=== PATIENT | female | born 1990 | race Caucasian/White ===

== ENCOUNTER → 2023-11-14 15:19 | Outpatient (REF) | payer OTHER, SELFPAY | LOC: PNTC 15:19 | PROVIDERS: ATTENDING PHYSICIAN Obstetrics & Gynecology | DX: O99.210 Obesity complicating pregnancy, unspecified trimester (principal); O34.219 Maternal care for unspecified type scar from previous cesarean delivery | CPT/HCPCS: 76805; 93976 ==

== ENCOUNTER → 2023-12-12 15:05 | Outpatient (REF) | payer OTHER, SELFPAY | LOC: PNTC 15:05 | PROVIDERS: ATTENDING PHYSICIAN Obstetrics & Gynecology | DX: O99.210 Obesity complicating pregnancy, unspecified trimester (principal) | CPT/HCPCS: 76811 ==

== ENCOUNTER → 2024-03-19 15:29 | Outpatient (REF) | payer OTHER, SELFPAY | LOC: PNTC 15:29 | PROVIDERS: ATTENDING PHYSICIAN Obstetrics & Gynecology | DX: O99.210 Obesity complicating pregnancy, unspecified trimester (principal) | CPT/HCPCS: 59025; 76815 ==

== ENCOUNTER 2024-05-02 08:04 | Inpatient (IN) | payer OTHER, SELFPAY ==
[2024-05-02 08:21] VITALS: BP 125/82; BMI 42.4
[2024-05-02] MEDS: LR 1000 IV ×2 (08:45→09:09)
[2024-05-02 09:05] LABS: Hematocrit 32.4 % (37.0-47.0); Hemoglobin 11.2 g/dL (12.0-16.0); Mean Corp Hgb Conc. 34.6 g/dL (33.0-37.0); Mean Corpuscular Hgb 28.8 pg (27.0-31.0); Mean Corpuscular Volume 83.3 fL (81.0-99.0); Mean Platelet Volume 9.7 fL (7.4-10.4); Platelet Count 238 10^3/uL (130-400); Red Blood Cell Count 3.89 10^6/uL (4.20-5.40); Red Cell Dist. Width 13.4 % (11.5-14.5); White Blood Cell Count 9.5 10^3/uL (4.8-10.8)
[2024-05-02] MEDS: BICITRA 30 ML PO (10:29)
[2024-05-02] MEDS: TYLENOL 1000 MG PO (10:29)
[2024-05-02] MEDS: TORADOL 15 MG IV ×2 (15:13→20:56)
[2024-05-02] MEDS: MYLICON 80 MG PO (20:20)
[2024-05-03] MEDS: TORADOL 15 MG IV ×2 (02:50→09:29)
[2024-05-03 04:23] LABS: Hematocrit 29.2 % (37.0-47.0); Hemoglobin 10.2 g/dL (12.0-16.0); Mean Corp Hgb Conc. 34.9 g/dL (33.0-37.0); Mean Corpuscular Hgb 29.8 pg (27.0-31.0); Mean Corpuscular Volume 85.4 fL (81.0-99.0); Mean Platelet Volume 9.7 fL (7.4-10.4); Platelet Count 203 10^3/uL (130-400); Red Blood Cell Count 3.42 10^6/uL (4.20-5.40); Red Cell Dist. Width 13.2 % (11.5-14.5); White Blood Cell Count 11.2 10^3/uL (4.8-10.8)
--- NOTE | 2024-05-03 08:05 | W.PN.ANS.POP ---
Anesthesia Post Operative
- Anesthesia Post Op Note
Vital Signs Stable-See Nursing Note: Yes
Airway Patent: Yes
Adequate Pain Control: Yes
Change in Mental Status: No
Current Postoperative Nausea & Vomiting: No
Anesthesia Complications: No
General Anesthetic Recall: No
Unplanned Admission: No
Post Op Hydration Adequate: Yes
[2024-05-03] MEDS: PRENATAL PLUS 1 TABLET PO (09:38)
[2024-05-03] MEDS: FEOSOL 325 MG PO (09:38)
[2024-05-03 12:42] LABS: Syphilis/T. pallidum Ab Reflex Negative (Negative)
[2024-05-03] MEDS: TYLENOL 650 MG PO ×2 (15:52→22:16)
[2024-05-03] MEDS: MOTRIN 600 MG PO ×2 (15:52→22:16)
[2024-05-04] MEDS: TYLENOL 650 MG PO ×3 (05:23→21:41)
[2024-05-04] MEDS: MOTRIN 600 MG PO ×3 (05:24→21:41)
[2024-05-04] MEDS: PRENATAL PLUS 1 TABLET PO (08:11)
[2024-05-04] MEDS: FEOSOL 325 MG PO (08:11)
[2024-05-04] MEDS: SENOKOT-S 1 TABLET PO (21:45)
[2024-05-05] MEDS: PRENATAL PLUS 1 TABLET PO (08:05)
[2024-05-05] MEDS: FEOSOL 325 MG PO (08:05)
[2024-05-05] MEDS: M-M-R II 0.5 ML SC (08:55)
--- NOTE | 2024-05-05 11:50 | W.DS.TRANS ---
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
-
Discharge Instructions:
Discharge Diagnosis/Procedures rcs
Instructions:
Stand-Alone Forms: LDRP Delivery
Changes to Home Medications: No
Discharge Medications:
DC Medications w/original date entered in [facility]
prenat.vits,clau,xiu-djys-stbgb 1 tab PO DAILY Supplement 09/14/22
ibuprofen 600 mg tablet 600 mg PO [id number] PRN cramps #90 tabs 05/05/24
Home Medication Changes
Pending Results: No
Total time spent discharging patient (in min): 20
== END 2024-05-05 14:49 | disposition home or self-care (01) | DRG 788 ==
LOC: LDRP 08:04
PROVIDERS: ADMITTING PHYSICIAN Obstetrics & Gynecology
PROC: 10D00Z1 Extraction of Products of Conception, Low, Open Approach (ICD-10-PCS; 2024-05-02)
DX: O34.211 Maternal care for low transverse scar from previous cesarean delivery (principal); O48.0 Post-term pregnancy; Z37.0 Single live birth; Z3A.41 41 weeks gestation of pregnancy; O99.824 Streptococcus B carrier state complicating childbirth
CPT/HCPCS: 36415; 85027; 86780; 86850; 86900; 86901; 90707